=== PATIENT | male | born 1965 | race American Indian/Alaskan Native ===

== ENCOUNTER 2017-08-24 09:59 | Outpatient (CLI) | payer OTHER ==
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
--- NOTE | 2017-08-25 13:02 | Magnetic Resonance Report ---
MRI RIGHT KNEE WITHOUT CONTRAST: 08/24/17 CLINICAL: Meniscal tear. TECHNIQUE: Sagittal proton density fat sat and T2, coronal T2 fat sat and proton density and axial gradient T2*sequences on a 1.5 Angela magnet. FINDINGS: The anterior cruciate ligament is intact and the posterior cruciate ligament is intact. Intact collateral ligaments. The posterolateral corner structures including popliteus tendon are intact. Tears of the body and posterior horn of the medial meniscus. A flap tear of the posterior horn medial meniscus with signal extending obliquely to the inferior articular surface. The medial meniscus is displaced medially out of the joint space. The cartilage of the medial femoral condyle is irregular and there is fluid in the joint space. Moderate size medial osteophytes. Focal marrow edema of the medial tibial plateau is consistent with a bone contusion. No fracture. Complex tear of the anterior horn and body of the lateral meniscus. A 7 mm parameniscal cyst at the anterior root of the lateral meniscus. Moderate knee joint effusion. The patella is intact with normal cartilage, tendon and retinaculum. Fluid in the gastrocnemius/semimembranosus bursa measures 5.3 x 2.8 x 1.6 cm. IMPRESSION: 1. Bilateral meniscal tears. Bone contusion of the medial tibial plateau suggests that at least a portion of the medial tear may be acute or subacute. However, there is also significant osteoarthritis of the medial joint space which supports a long-standing tear. 2. No ligamentous injury. 3. Small knee joint effusion and a 5 cm [place] cyst.
== END 2017-08-24 10:00 | disposition home or self-care (01) ==
LOC: MRI 09:59
PROVIDERS: ATTEND Internal Medicine
DX: S83.271A Complex tear of lateral meniscus, current injury, right knee, initial encounter (principal); S83.241A Other tear of medial meniscus, current injury, right knee, initial encounter; S39.92XA Unspecified injury of lower back, initial encounter; M71.21 Synovial cyst of popliteal space [Baker], right knee; M47.896 Other spondylosis, lumbar region; I10 Essential (primary) hypertension; E78.5 Hyperlipidemia, unspecified; D64.9 Anemia, unspecified; X58.XXXA Exposure to other specified factors, initial encounter; Y93.89 Activity, other specified; Y92.89 Other specified places as the place of occurrence of the external cause; Y99.8 Other external cause status
CPT/HCPCS: 72100; 73721